=== PATIENT | female | born 1980 | race Caucasian/White ===

== ENCOUNTER 2017-03-20 11:48 | Emergency (ER) | payer MEDICAID ==
[2017-03-20 12:31] LABS: BASOPHILS 0.1 % (0-2); EOSINOPHILS 0.7 % (0-7); HEMATOCRIT 36.9 % (36.0-48.0); HEMOGLOBIN 12.4 g/dL (12-16); IMMATURE GRANULOCYTES 0.1 % (0-5); LYMPHOCYTES 11.9 % (15-50); MCH 30.5 pg (26.0-34.0); MCHC 33.6 g/dL (31.0-37.0); MCV 90.9 fL (80.0-100.0); MEAN PLATELET VOLUME 9.4 fL (7.4-10.4); MONOCYTES 10.2 % (2-11); PLATELET COUNT 241 10x3/uL (130-400); RBC 4.06 10x6/uL (4.00-5.40); RDW 12.7 % (11.5-14.5); WBC 8.2 10x3/uL (4.8-10.8)
[2017-03-20 12:43] LABS: HCG SERUM NEGATIVE (NEGATIVE)
[2017-03-20 12:49] LABS: ALBUMIN 3.5 g/dL (3.4-5.0); ALKALINE PHOSPHATASE 89 U/L (46-116); ALT (SGPT) 60 U/L (10-68); BILIRUBIN - TOTAL 0.87 mg/dL (0.2-1.3); CALC OSMOLALITY 276 mosm/kg (275-300); CALCIUM 9.6 mg/dL (8.5-10.1); CARBON DIOXIDE 27.3 mmol/L (21.0-32.0); CHLORIDE - SERUM 98 mmol/L (98-107); CREATININE - SERUM 0.9 mg/dL (0.6-1.3); GLUCOSE 110 mg/dL (74-106); PROTEIN - SERUM 8.3 g/dL (6.4-8.2); SODIUM 138 mmol/L (136-145); UREA NITROGEN 12 mg/dL (7-18); eGFR NON AFRICAN AMERICAN 75 mL/min (90-120)
[2017-03-20 13:42] LABS: APPEARANCE CLEAR (CLEAR); COLOR DK YELLOW (YELLOW); GLUCOSE NEGATIVE (NEGATIVE); KETONE SMALL mg/dL (NEGATIVE); LEUKOCYTE ESTERASE TRACE (NEGATIVE); NITRITE NEGATIVE (NEGATIVE); PROTEIN 1+ mg/dL (NEGATIVE); SPECIFIC GRAVITY 1.015 (1.005-1.020)
[2017-03-20 13:43] LABS: BACTERIA MANY /hpf (NONE SEEN); BILIRUBIN 1+ (NEGATIVE); EPITHELIAL CELLS 0-5 /hpf (0-5); RED CELLS - URINE OCC /hpf (0-5); UROBILINOGEN NORMAL (NORMAL)
[2017-03-20 14:14] LABS: MAGNESIUM - SERUM 2.1 mg/dL (1.8-2.4)
== END 2017-03-20 15:50 | disposition home or self-care (01) ==
LOC: D.ER 11:48
PROVIDERS: Emergency Medicine
DX: R10.9 Unspecified abdominal pain (principal); R11.10 Vomiting, unspecified; R19.7 Diarrhea, unspecified; E87.6 Hypokalemia; N39.0 Urinary tract infection, site not specified; F41.9 Anxiety disorder, unspecified; F31.9 Bipolar disorder, unspecified; F60.3 Borderline personality disorder; F17.200 Nicotine dependence, unspecified, uncomplicated

== ENCOUNTER 2017-05-19 17:55 | Emergency (ER) | payer MEDICAID | END 2017-05-19 21:38 | disposition home or self-care (01) | LOC: D.ER 17:55 | DX: R07.89 Other chest pain (principal); F17.200 Nicotine dependence, unspecified, uncomplicated; F31.89 Other bipolar disorder; E87.6 Hypokalemia ==

== ENCOUNTER 2017-06-01 11:38 | Emergency (ER) | payer MEDICAID | END 2017-06-01 13:13 | disposition home or self-care (01) | LOC: D.ER 11:38 | DX: S59.901A Unspecified injury of right elbow, initial encounter (principal); W10.9XXA Fall (on) (from) unspecified stairs and steps, initial encounter; Y93.89 Activity, other specified; Y92.89 Other specified places as the place of occurrence of the external cause ==

== ENCOUNTER 2017-08-25 09:47 | Emergency (ER) | payer MEDICAID ==
[2017-08-25 10:33] LABS: APPEARANCE CLEAR (CLEAR); BACTERIA FEW /hpf (NONE SEEN); BILIRUBIN NEGATIVE (NEGATIVE); COLOR YELLOW (YELLOW); EPITHELIAL CELLS 0-5 /hpf (0-5); GLUCOSE NEGATIVE (NEGATIVE); KETONE NEGATIVE (NEGATIVE); MUCUS <1+ /lpf (NONE SEEN); NITRITE NEGATIVE (NEGATIVE); PROTEIN NEGATIVE (NEGATIVE); UROBILINOGEN NORMAL (NORMAL); WHITE CELLS - URINE 0-5 /hpf (0-5); YEAST OCC /hpf (NONE SEEN)
[2017-08-25 10:52] LABS: BASOPHILS 0.1 % (0-2); EOSINOPHILS 1.1 % (0-7); HEMATOCRIT 38.2 % (36.0-48.0); HEMOGLOBIN 13.1 g/dL (12-16); IMMATURE GRANULOCYTES 0.1 % (0-5); LYMPHOCYTES 19.1 % (15-50); MCH 30.2 pg (26.0-34.0); MCHC 34.3 g/dL (31.0-37.0); MEAN PLATELET VOLUME 9.2 fL (7.4-10.4); MONOCYTES 2.7 % (2-11); NEUTROPHILS 76.9 % (40-80); RBC 4.34 10x6/uL (4.00-5.40); RDW 12.7 % (11.5-14.5); WBC 7.4 10x3/uL (4.8-10.8)
[2017-08-25 10:53] LABS: PLATELET COUNT 177 10x3/uL (130-400)
[2017-08-25 11:20] LABS: ALBUMIN 3.8 g/dL (3.4-5.0); ALKALINE PHOSPHATASE 72 U/L (46-116); ALT (SGPT) 33 U/L (10-68); BILIRUBIN - TOTAL 0.23 mg/dL (0.2-1.3); CALC OSMOLALITY 274 mosm/kg (275-300); CALCIUM 9.3 mg/dL (8.5-10.1); CARBON DIOXIDE 29.8 mmol/L (21.0-32.0); CHLORIDE - SERUM 104 mmol/L (98-107); CREATININE - SERUM 0.9 mg/dL (0.6-1.3); GLUCOSE 107 mg/dL (74-106); POTASSIUM - SERUM 4.3 mmol/L (3.5-5.1); PROTEIN - SERUM 7.3 g/dL (6.4-8.2); SODIUM 138 mmol/L (136-145); UREA NITROGEN 9 mg/dL (7-18); eGFR NON AFRICAN AMERICAN 75 mL/min (90-120)
== END 2017-08-25 12:27 | disposition home or self-care (01) ==
LOC: D.ER 09:47
PROVIDERS: Emergency Medicine
DX: R10.9 Unspecified abdominal pain (principal)

== ENCOUNTER 2017-08-27 12:17 | Emergency (ER) | payer MEDICAID | END 2017-08-27 13:17 | disposition home or self-care (01) | LOC: D.ER 12:17 | DX: R10.9 Unspecified abdominal pain (principal); K46.9 Unspecified abdominal hernia without obstruction or gangrene; F17.200 Nicotine dependence, unspecified, uncomplicated ==

== ENCOUNTER 2017-10-07 14:10 | Emergency (ER) | payer MEDICAID ==
[2017-10-07 14:38] LABS: APPEARANCE HAZY (CLEAR); BILIRUBIN NEGATIVE (NEGATIVE); COLOR YELLOW (YELLOW); GLUCOSE NEGATIVE (NEGATIVE); KETONE NEGATIVE (NEGATIVE); NITRITE NEGATIVE (NEGATIVE); PROTEIN NEGATIVE (NEGATIVE); UROBILINOGEN NORMAL (NORMAL)
[2017-10-07 14:39] LABS: EPITHELIAL CELLS 0-5 /hpf (0-5)
[2017-10-07 14:40] LABS: AMORPHOUS SEDIMENT <1+ /lpf (NONE SEEN); BACTERIA FEW /hpf (NONE SEEN)
== END 2017-10-07 15:31 | disposition home or self-care (01) ==
LOC: D.ER 14:10
PROVIDERS: Emergency Medicine
DX: R82.71 Bacteriuria (principal)

== ENCOUNTER 2017-10-25 22:26 | Emergency (ER) | payer MEDICAID ==
[2017-10-26 00:17] LABS: HCG URINE NEGATIVE (NEGATIVE)
[2017-10-26 00:28] LABS: UDS - AMPHET NEGATIVE QUAL (NEGATIVE); UDS - BARB NEGATIVE QUAL (NEGATIVE); UDS - BENZO NEGATIVE QUAL (NEGATIVE); UDS - COCAINE NEGATIVE QUAL (NEGATIVE); UDS - OPIATE NEGATIVE QUAL (NEGATIVE); UDS - PCP NEGATIVE QUAL (NEGATIVE); UDS - THC NEGATIVE QUAL (NEGATIVE)
== END 2017-10-26 01:24 | disposition home or self-care (01) ==
LOC: D.ER 22:26
PROVIDERS: Family Medicine
DX: S16.1XXA Strain of muscle, fascia and tendon at neck level, initial encounter (principal); W17.89XA Other fall from one level to another, initial encounter; Y93.89 Activity, other specified; Y92.028 Other place in mobile home as the place of occurrence of the external cause; S00.93XA Contusion of unspecified part of head, initial encounter; S06.0X1A Concussion with loss of consciousness of 30 minutes or less, initial encounter

== ENCOUNTER → 2017-10-31 14:34 | Outpatient (CLI) | payer MEDICAID | END | disposition home or self-care (01) | LOC: D.MRI 10-30 15:30 | DX: M25.532 Pain in left wrist (principal) ==

== ENCOUNTER 2017-11-18 15:26 | Emergency (ER) | payer MEDICAID | END 2017-11-18 17:45 | disposition home or self-care (01) | LOC: D.ER 15:26 | DX: S61.412A Laceration without foreign body of left hand, initial encounter (principal); W45.8XXA Other foreign body or object entering through skin, initial encounter; Y93.89 Activity, other specified; Y92.019 Unspecified place in single-family (private) house as the place of occurrence of the external cause ==

== ENCOUNTER 2017-11-26 19:36 | Emergency (ER) | payer MEDICAID | END 2017-11-26 21:44 | disposition home or self-care (01) | LOC: D.ER 19:36 | DX: L02.215 Cutaneous abscess of perineum (principal) ==

== ENCOUNTER 2017-12-20 10:50 | Emergency (ER) | payer MEDICAID | END 2017-12-20 13:16 | disposition home or self-care (01) | LOC: D.ER 10:50 | DX: S16.1XXA Strain of muscle, fascia and tendon at neck level, initial encounter (principal); V49.9XXA Car occupant (driver) (passenger) injured in unspecified traffic accident, initial encounter; Y93.89 Activity, other specified; Y92.410 Unspecified street and highway as the place of occurrence of the external cause ==

== ENCOUNTER 2018-04-12 08:31 | Emergency (ER) | payer MEDICAID ==
[2018-04-12 09:06] LABS: BASOPHILS 0.2 % (0-2); EOSINOPHILS 1.2 % (0-7); HEMATOCRIT 41.1 % (36.0-48.0); HEMOGLOBIN 14.1 g/dL (12-16); LYMPHOCYTES 27.1 % (15-50); MCH 30.5 pg (26.0-34.0); MCHC 34.3 g/dL (31.0-37.0); MEAN PLATELET VOLUME 9.4 fL (7.4-10.4); MONOCYTES 5.2 % (2-11); NEUTROPHILS 66.3 % (40-80); PLATELET COUNT 191 10x3/uL (130-400); RBC 4.62 10x6/uL (4.00-5.40); RDW 12.9 % (11.5-14.5); WBC 5.7 10x3/uL (4.8-10.8)
[2018-04-12 09:22] LABS: ALBUMIN 3.9 g/dL (3.4-5.0); ALKALINE PHOSPHATASE 80 U/L (46-116); ALT (SGPT) 19 U/L (10-68); BILIRUBIN - TOTAL 0.61 mg/dL (0.2-1.3); CALC OSMOLALITY 281 mosm/kg (275-300); CALCIUM 9.3 mg/dL (8.5-10.1); CARBON DIOXIDE 30.1 mmol/L (21.0-32.0); CHLORIDE - SERUM 104 mmol/L (98-107); GLUCOSE 106 mg/dL (74-106); POTASSIUM - SERUM 4.1 mmol/L (3.5-5.1); PROTEIN - SERUM 7.7 g/dL (6.4-8.2); SODIUM 141 mmol/L (136-145); UREA NITROGEN 16 mg/dL (7-18); eGFR NON AFRICAN AMERICAN 66 mL/min (90-120)
[2018-04-12 09:27] LABS: CREATINE KINASE 55 UL (21-215)
[2018-04-12 09:34] LABS: TROPONIN-I < 0.017 ng/mL (0.000-0.060)
== END 2018-04-12 10:40 | disposition home or self-care (01) ==
LOC: D.ER 08:31
PROVIDERS: Emergency Medicine
DX: R00.2 Palpitations (principal); F17.200 Nicotine dependence, unspecified, uncomplicated

== ENCOUNTER 2018-09-16 21:17 | Emergency (ER) | payer MEDICAID ==
[~2018-09-16] VITALS: Ht 149.9 cm; Wt 63.6 kg
[2018-09-16 21:30] VITALS: Ht 149.9 cm; Wt 63.6 kg
[2018-09-16] MEDS ORDERED: KLONOPIN0.5 MG (21:32)
[2018-09-16] MEDS ORDERED: TORADOL10 MG PO (22:50)
[2018-09-16 23:04] VITALS: BP 115/74
== END 2018-09-16 23:05 | disposition home or self-care (01) ==
LOC: D.ER 21:17
DX: S71.112A Laceration without foreign body, left thigh, initial encounter (principal); X78.9XXA Intentional self-harm by unspecified sharp object, initial encounter; Y93.89 Activity, other specified; Y92.019 Unspecified place in single-family (private) house as the place of occurrence of the external cause; F17.200 Nicotine dependence, unspecified, uncomplicated

== ENCOUNTER 2018-09-18 22:13 | Emergency (ER) | payer MEDICAID ==
[~2018-09-18] VITALS: Ht 149.9 cm; Wt 68.2 kg
[~2018-09-18 22:13] MED LIST: KLONOPIN0.5 MG; TORADOL10 MG PO
[2018-09-18 22:17] VITALS: Ht 149.9 cm; Wt 68.2 kg
[2018-09-19] MEDS ORDERED: EC-NAPROSYN500 MG PO (00:13)
[2018-09-19] MEDS ORDERED: BACTRIM 400-801 TAB PO (00:13)
[2018-09-19] MEDS ORDERED: POLYSPORIN OINT15 G1 TOPICAL (00:13)
[2018-09-19 00:29] VITALS: BP 116/74
== END 2018-09-19 00:29 | disposition home or self-care (01) ==
LOC: D.ER 22:13
DX: S71.112D Laceration without foreign body, left thigh, subsequent encounter (principal); X99.1XXD Assault by knife, subsequent encounter; M79.652 Pain in left thigh

== ENCOUNTER 2018-10-07 13:14 | Emergency (ER) | payer MEDICAID ==
[~2018-10-07] VITALS: Ht 149.9 cm; Wt 68.2 kg
[~2018-10-07 13:14] MED LIST changes: +BACTRIM 400-801 TAB PO; +EC-NAPROSYN500 MG PO; +POLYSPORIN OINT15 G1 TOPICAL
[2018-10-07 13:18] VITALS: Ht 149.9 cm; Wt 68.2 kg
[2018-10-07 13:45] LABS: APPEARANCE CLEAR (CLEAR); COLOR DK YELLOW (YELLOW)
[2018-10-07 13:46] LABS: BILIRUBIN NEGATIVE (NEGATIVE); GLUCOSE NEGATIVE (NEGATIVE); KETONE NEGATIVE (NEGATIVE); NITRITE NEGATIVE (NEGATIVE); PROTEIN 2+ mg/dL (NEGATIVE); SPECIFIC GRAVITY 1.025 (1.005-1.020); UROBILINOGEN NORMAL (NORMAL)
[2018-10-07 13:48] LABS: BACTERIA MODERATE /hpf (NONE SEEN); EPITHELIAL CELLS 0-5 /hpf (0-5); MUCUS <1+ /lpf (NONE SEEN); RED CELLS - URINE 0-5 /hpf (0-5); WHITE CELLS - URINE 0-5 /hpf (0-5)
[2018-10-07 13:56] LABS: BASOPHILS 0.3 % (0-2); EOSINOPHILS 0.8 % (0-7); HEMATOCRIT 47.2 % (36.0-48.0); HEMOGLOBIN 16.6 g/dL (12-16); IMMATURE GRANULOCYTES 0.1 % (0-5); LYMPHOCYTES 19.7 % (15-50); MCHC 35.2 g/dL (31.0-37.0); MCV 88.1 fL (80.0-100.0); MEAN PLATELET VOLUME 9.2 fL (7.4-10.4); MONOCYTES 5.5 % (2-11); NEUTROPHILS 73.6 % (40-80); PLATELET COUNT 218 10x3/uL (130-400); RBC 5.36 10x6/uL (4.00-5.40); RDW 12.6 % (11.5-14.5); WBC 7.9 10x3/uL (4.8-10.8)
[2018-10-07 14:08] LABS: ALBUMIN 4.2 g/dL (3.4-5.0); ALKALINE PHOSPHATASE 104 U/L (46-116); ALT (SGPT) 45 U/L (10-68); CALC OSMOLALITY 276 mosm/kg (275-300); CALCIUM 9.8 mg/dL (8.5-10.1); CARBON DIOXIDE 27.2 mmol/L (21.0-32.0); CHLORIDE - SERUM 98 mmol/L (98-107); CREATININE - SERUM 0.9 mg/dL (0.6-1.3); GLUCOSE 104 mg/dL (74-106); POTASSIUM - SERUM 3.7 mmol/L (3.5-5.1); PROTEIN - SERUM 8.5 g/dL (6.4-8.2); SODIUM 138 mmol/L (136-145); UREA NITROGEN 14 mg/dL (7-18); eGFR NON AFRICAN AMERICAN 75 mL/min (90-120)
[2018-10-07] MEDS ORDERED: PHENERGAN25 M1 PO (15:22)
[2018-10-07] MEDS ORDERED: KEFLEX500 MG PO (15:22)
[2018-10-07 15:42] VITALS: BP 125/81
== END 2018-10-07 15:42 | disposition home or self-care (01) ==
LOC: D.ER 13:14
PROVIDERS: Family Medicine
DX: R11.2 Nausea with vomiting, unspecified (principal); E86.0 Dehydration

== ENCOUNTER 2018-10-12 15:18 | Emergency (ER) | payer MEDICAID ==
[~2018-10-12] VITALS: Ht 149.9 cm; Wt 61.4 kg
[~2018-10-12 15:18] MED LIST changes: +KEFLEX500 MG PO; +PHENERGAN25 M1 PO
[2018-10-12 15:32] VITALS: Ht 149.9 cm; Wt 61.4 kg
[2018-10-12 19:31] VITALS: BP 130/77
== END 2018-10-12 19:33 | disposition home or self-care (01) ==
LOC: D.ER 15:18
DX: R53.1 Weakness (principal); F17.200 Nicotine dependence, unspecified, uncomplicated

== ENCOUNTER 2018-12-11 16:02 | Emergency (ER) | payer MEDICAID ==
[~2018-12-11] VITALS: Ht 149.9 cm; Wt 70.0 kg
[2018-12-11 16:13] VITALS: BP 120/78; Ht 149.9 cm; Wt 70.0 kg
[2018-12-11] MEDS ORDERED: TRAZODONE HCL150 MG PO (16:16)
[2018-12-11 17:24] LABS: BASOPHILS 0.2 % (0-2); EOSINOPHILS 2.2 % (0-7); HEMATOCRIT 39.7 % (36.0-48.0); HEMOGLOBIN 13.5 g/dL (12-16); IMMATURE GRANULOCYTES 0.2 % (0-5); LYMPHOCYTES 25.2 % (15-50); MCH 31.1 pg (26.0-34.0); MCV 91.5 fL (80.0-100.0); MEAN PLATELET VOLUME 9.2 fL (7.4-10.4); MONOCYTES 4.9 % (2-11); NEUTROPHILS 67.3 % (40-80); PLATELET COUNT 247 10x3/uL (130-400); RBC 4.34 10x6/uL (4.00-5.40); RDW 13.5 % (11.5-14.5); WBC 8.6 10x3/uL (4.8-10.8)
[2018-12-11 17:39] LABS: ALBUMIN 3.4 g/dL (3.4-5.0); ALKALINE PHOSPHATASE 92 U/L (46-116); ALT (SGPT) 23 U/L (10-68); BILIRUBIN - TOTAL 0.24 mg/dL (0.2-1.3); CALC OSMOLALITY 279 mosm/kg (275-300); CALCIUM 8.4 mg/dL (8.5-10.1); CARBON DIOXIDE 27.3 mmol/L (21.0-32.0); CHLORIDE - SERUM 105 mmol/L (98-107); CREATININE - SERUM 0.8 mg/dL (0.6-1.3); GLUCOSE 98 mg/dL (74-106); POTASSIUM - SERUM 3.5 mmol/L (3.5-5.1); PROTEIN - SERUM 7.6 g/dL (6.4-8.2); SODIUM 141 mmol/L (136-145); UREA NITROGEN 11 mg/dL (7-18); eGFR NON AFRICAN AMERICAN 86 mL/min (90-120)
== END 2018-12-11 19:20 | disposition left against medical advice (07) ==
LOC: D.ER 16:02
PROVIDERS: Emergency Medicine
DX: R05 Cough (principal); R09.89 Other specified symptoms and signs involving the circulatory and respiratory systems

== ENCOUNTER 2018-12-31 15:13 | Emergency (ER) | payer MEDICAID ==
[2018-12-11 16:13] VITALS: BMI 31.1
[~2018-12-31 15:13] MED LIST changes: +TRAZODONE HCL150 MG PO
== END 2018-12-31 15:29 | disposition left against medical advice (07) ==
LOC: D.ER 15:13
DX: R06.00 Dyspnea, unspecified (principal); R05 Cough

== ENCOUNTER → 2019-03-04 16:15 | Outpatient (CLI) | payer MEDICAID | END | disposition home or self-care (01) | LOC: D.LAB 16:15 | DX: M25.511 Pain in right shoulder (principal) ==

== ENCOUNTER 2019-05-01 19:43 | Emergency (ER) | payer MEDICAID ==
[~2019-05-01] VITALS: Ht 149.9 cm; Wt 72.7 kg
[2019-05-01 19:45] VITALS: Ht 149.9 cm; Wt 72.7 kg
[2019-05-01] MEDS ORDERED: KLONOPIN1 MG PO (19:58)
[2019-05-01] MEDS ORDERED: PERCOCET 7.5/321 TAB PO (19:59)
[2019-05-01 20:04] LABS: BASOPHILS 0.3 % (0-2); EOSINOPHILS 3.1 % (0-7); HEMATOCRIT 38.6 % (36.0-48.0); HEMOGLOBIN 13.3 g/dL (12-16); IMMATURE GRANULOCYTES 0.3 % (0-5); LYMPHOCYTES 28.5 % (15-50); MCH 30.7 pg (26.0-34.0); MCHC 34.5 g/dL (31.0-37.0); MCV 89.1 fL (80.0-100.0); MEAN PLATELET VOLUME 9.2 fL (7.4-10.4); MONOCYTES 5.9 % (2-11); NEUTROPHILS 61.9 % (40-80); PLATELET COUNT 233 10x3/uL (130-400); RBC 4.33 10x6/uL (4.00-5.40); RDW 13.8 % (11.5-14.5); WBC 7.7 10x3/uL (4.8-10.8)
[2019-05-01 20:33] LABS: ALBUMIN 3.9 g/dL (3.4-5.0); ALKALINE PHOSPHATASE 114 U/L (46-116); ALT (SGPT) 103 U/L (10-68); BILIRUBIN - TOTAL 0.42 mg/dL (0.2-1.3); CALC OSMOLALITY 279 mosm/kg (275-300); CALCIUM 9.4 mg/dL (8.5-10.1); CARBON DIOXIDE 27.1 mmol/L (21.0-32.0); CHLORIDE - SERUM 103 mmol/L (98-107); CREATININE - SERUM 0.7 mg/dL (0.6-1.3); GLUCOSE 101 mg/dL (74-106); PROTEIN - SERUM 7.7 g/dL (6.4-8.2); SODIUM 140 mmol/L (136-145); UREA NITROGEN 15 mg/dL (7-18); eGFR NON AFRICAN AMERICAN > 90 mL/min (90-120)
[2019-05-01 20:35] LABS: APPEARANCE CLEAR (CLEAR); COLOR YELLOW (YELLOW); GLUCOSE NEGATIVE (NEGATIVE); KETONE NEGATIVE (NEGATIVE); NITRITE NEGATIVE (NEGATIVE); PROTEIN NEGATIVE (NEGATIVE); UROBILINOGEN NORMAL (NORMAL)
[2019-05-01 20:36] LABS: BILIRUBIN NEGATIVE (NEGATIVE); EPITHELIAL CELLS 0-5 /hpf (0-5); RED CELLS - URINE 0-5 /hpf (0-5); WHITE CELLS - URINE 0-5 /hpf (0-5)
[2019-05-01 20:37] LABS: AMYLASE - SERUM 46 U/L (25-115); LIPASE 184 U/L (73-393); TROPONIN-I < 0.017 ng/mL (0.000-0.060)
[2019-05-01 20:37] LABS: BACTERIA MANY /hpf (NONE SEEN)
[2019-05-01] MEDS ORDERED: PHENAZOPYRIDIN200 MG PO (21:57)
[2019-05-01] MEDS ORDERED: KEFLEX500 MG PO (21:57)
[2019-05-01] MEDS ORDERED: MACROBID100 MG PO (21:57)
[2019-05-01 23:15] VITALS: BP 131/86
== END 2019-05-01 23:15 | disposition home or self-care (01) ==
LOC: D.ER 19:43
PROVIDERS: Family Medicine
DX: N39.0 Urinary tract infection, site not specified (principal); R10.31 Right lower quadrant pain

== ENCOUNTER 2020-02-01 19:51 | Emergency (ER) | payer MEDICAID ==
[~2020-02-01] VITALS: Ht 149.9 cm; Wt 72.7 kg
[~2020-02-01 19:51] MED LIST changes: +KLONOPIN1 MG PO; +MACROBID100 MG PO; +PERCOCET 7.5/321 TAB PO; +PHENAZOPYRIDIN200 MG PO
[2020-02-01 20:06] VITALS: Ht 149.9 cm; Wt 72.7 kg
[2020-02-01] MEDS ORDERED: LATUDA40 MG PO (20:08)
[2020-02-01 20:21] LABS: BASOPHILS 0.2 % (0-2); HEMATOCRIT 44.6 % (36.0-48.0); IMMATURE GRANULOCYTES 0.2 % (0-5); LYMPHOCYTES 27.9 % (15-50); MCH 30.4 pg (26.0-34.0); MCHC 33.6 g/dL (31.0-37.0); MCV 90.5 fL (80.0-100.0); MEAN PLATELET VOLUME 9.2 fL (7.4-10.4); MONOCYTES 5.6 % (2-11); NEUTROPHILS 64.1 % (40-80); RBC 4.93 10x6/uL (4.00-5.40); RDW 13.6 % (11.5-14.5); WBC 12.5 10x3/uL (4.8-10.8)
[2020-02-01 20:22] LABS: PLATELET COUNT 298 10x3/uL (130-400)
[2020-02-01 20:33] LABS: ANION GAP 14.4 mmol/L (8-16); CALCIUM 9.6 mg/dL (8.5-10.1); CARBON DIOXIDE 25.8 mmol/L (21.0-32.0); CREATININE - SERUM 0.9 mg/dL (0.6-1.3); POTASSIUM - SERUM 3.2 mmol/L (3.5-5.1)
[2020-02-01 20:41] LABS: ALBUMIN 4.3 g/dL (3.4-5.0); BILIRUBIN - TOTAL 0.58 mg/dL (0.2-1.3); PROTEIN - SERUM 8.4 g/dL (6.4-8.2)
[2020-02-01 20:49] LABS: NITRITE NEGATIVE (NEGATIVE)
[2020-02-01 20:50] LABS: BILIRUBIN NEGATIVE (NEGATIVE); GLUCOSE NEGATIVE (NEGATIVE); KETONE NEGATIVE (NEGATIVE); UROBILINOGEN NORMAL (NORMAL)
[2020-02-01 20:52] LABS: BACTERIA MODERATE /hpf (NEGATIVE); RED CELLS - URINE 0-5 /hpf (0-5)
[2020-02-01] MEDS ORDERED: KEFLEX500 MG PO (21:04)
[2020-02-01] MEDS ORDERED: MACROBID100 MG PO (21:04)
[2020-02-01 21:33] VITALS: BP 110/65
== END 2020-02-01 21:33 | disposition home or self-care (01) ==
LOC: D.ER 19:51
PROVIDERS: Emergency Medicine
DX: N39.0 Urinary tract infection, site not specified (principal); R10.9 Unspecified abdominal pain; E87.6 Hypokalemia; D72.829 Elevated white blood cell count, unspecified

== ENCOUNTER 2020-02-14 18:04 | Emergency (ER) | payer MEDICAID ==
[~2020-02-14] VITALS: Ht 149.9 cm; Wt 77.3 kg
[~2020-02-14 18:04] MED LIST changes: +LATUDA40 MG PO
[2020-02-14 18:26] VITALS: BP 135/89; Ht 149.9 cm; Wt 77.3 kg
[2020-02-14] MEDS ORDERED: TESSALON PERLE100 MG PO (20:16)
[2020-02-14] MEDS ORDERED: STERAPRED 5MG 65 M1 PO (20:18)
[2020-02-14] MEDS ORDERED: ALBUTEROL SULF8.5 GM INH (20:18)
== END 2020-02-14 20:31 | disposition home or self-care (01) ==
LOC: D.ER 18:04
DX: J40 Bronchitis, not specified as acute or chronic (principal)

== ENCOUNTER 2020-03-30 10:47 | Emergency (ER) | payer MEDICAID ==
[~2020-03-30] VITALS: Ht 149.9 cm; Wt 81.8 kg
[~2020-03-30 10:47] MED LIST changes: +ALBUTEROL SULF8.5 GM INH; +STERAPRED 5MG 65 M1 PO; +TESSALON PERLE100 MG PO
[2020-03-30 11:07] VITALS: Ht 149.9 cm; Wt 81.8 kg
[2020-03-30 11:48] LABS: BILIRUBIN NEGATIVE (NEGATIVE); GLUCOSE NEGATIVE (NEGATIVE); HCG URINE NEGATIVE (NEGATIVE); KETONE NEGATIVE (NEGATIVE); NITRITE NEGATIVE (NEGATIVE); UROBILINOGEN NORMAL (NORMAL)
[2020-03-30 11:49] LABS: BACTERIA NONE SEEN /hpf (NEGATIVE); EPITHELIAL CELLS RARE /hpf (0-5); RED CELLS - URINE 0-5 /hpf (0-5); WHITE CELLS - URINE RARE /hpf (NEGATIVE)
[2020-03-30 11:56] LABS: BASOPHILS 0.2 % (0-2); EOSINOPHILS 1.8 % (0-7); HEMATOCRIT 42.3 % (36.0-48.0); HEMOGLOBIN 13.5 g/dL (12-16); IMMATURE GRANULOCYTES 0.3 % (0-5); LYMPHOCYTES 10.8 % (15-50); MCH 29.7 pg (26.0-34.0); MCHC 31.9 g/dL (31.0-37.0); MCV 93.2 fL (80.0-100.0); MEAN PLATELET VOLUME 8.6 fL (7.4-10.4); MONOCYTES 3.8 % (2-11); NEUTROPHILS 83.1 % (40-80); PLATELET COUNT 274 10x3/uL (130-400); RBC 4.54 10x6/uL (4.00-5.40); RDW 14.6 % (11.5-14.5); WBC 11.4 10x3/uL (4.8-10.8)
[2020-03-30 12:07] LABS: CALC OSMOLALITY 278 mosm/kg (275-300); CALCIUM 9.5 mg/dL (8.5-10.1); CARBON DIOXIDE 28.2 mmol/L (21.0-32.0); CHLORIDE - SERUM 101 mmol/L (98-107); CREATININE - SERUM 0.8 mg/dL (0.6-1.3); GLUCOSE 112 mg/dL (74-106); POTASSIUM - SERUM 4.8 mmol/L (3.5-5.1); SODIUM 138 mmol/L (136-145); UREA NITROGEN 17 mg/dL (7-18); eGFR NON AFRICAN AMERICAN 85 mL/min (90-120)
[2020-03-30 12:12] LABS: ALBUMIN 4.3 g/dL (3.4-5.0); ALKALINE PHOSPHATASE 100 U/L (30-120); ALT (SGPT) 121 U/L (10-68); AMYLASE - SERUM 58 U/L (25-115); BILIRUBIN - TOTAL 0.56 mg/dL (0.2-1.3); LIPASE 168 U/L (73-393); PROTEIN - SERUM 8.2 g/dL (6.4-8.2)
[2020-03-30] MEDS ORDERED: MACROBID100 MG PO (13:49)
[2020-03-30] MEDS ORDERED: PHENERGAN25 M1 PO (13:49)
[2020-03-30 14:19] VITALS: BP 137/89
== END 2020-03-30 14:25 | disposition home or self-care (01) ==
LOC: D.ER 10:47
PROVIDERS: Family Medicine
DX: N23 Unspecified renal colic (principal); R31.9 Hematuria, unspecified; Z87.442 Personal history of urinary calculi; R11.2 Nausea with vomiting, unspecified; R10.9 Unspecified abdominal pain

== ENCOUNTER 2020-07-17 20:24 | Emergency (ER) | payer MEDICAID ==
[~2020-07-17] VITALS: Ht 149.9 cm; Wt 81.6 kg
[2020-07-17 20:40] VITALS: Ht 149.9 cm; Wt 81.6 kg
[2020-07-17 20:56] LABS: BILIRUBIN NEGATIVE (NEGATIVE); GLUCOSE NEGATIVE (NEGATIVE); KETONE NEGATIVE (NEGATIVE); NITRITE NEGATIVE (NEGATIVE); UROBILINOGEN NORMAL (NORMAL)
[2020-07-17 20:59] LABS: BACTERIA FEW /hpf (NEGATIVE); RED CELLS - URINE 0-5 /hpf (0-5); WHITE CELLS - URINE 0-5 /hpf (NEGATIVE)
[2020-07-17 21:02] LABS: BASOPHILS 0.2 % (0-2); EOSINOPHILS 1.8 % (0-7); HEMATOCRIT 41.8 % (36.0-48.0); HEMOGLOBIN 13.5 g/dL (12-16); IMMATURE GRANULOCYTES 0.3 % (0-5); LYMPHOCYTES 24.2 % (15-50); MCH 29.3 pg (26.0-34.0); MCHC 32.3 g/dL (31.0-37.0); MCV 90.9 fL (80.0-100.0); MEAN PLATELET VOLUME 8.6 fL (7.4-10.4); NEUTROPHILS 67.5 % (40-80); PLATELET COUNT 247 10x3/uL (130-400); RDW 13.4 % (11.5-14.5); WBC 10.6 10x3/uL (4.8-10.8)
[2020-07-17 21:15] LABS: HCG SERUM NEGATIVE (NEGATIVE)
[2020-07-17 21:16] LABS: ANION GAP 12.5 mmol/L (8-16); CALCIUM 9.4 mg/dL (8.5-10.1); CARBON DIOXIDE 28.2 mmol/L (21.0-32.0); CREATININE - SERUM 0.9 mg/dL (0.6-1.3); POTASSIUM - SERUM 3.7 mmol/L (3.5-5.1)
[2020-07-17 21:22] LABS: ALBUMIN 3.9 g/dL (3.4-5.0); BILIRUBIN - TOTAL 0.31 mg/dL (0.2-1.3); PROTEIN - SERUM 7.8 g/dL (6.4-8.2)
[2020-07-17] MEDS ORDERED: NAPROSYN500 MG PO (22:14)
[2020-07-17] MEDS ORDERED: CYCLOBENZAPRINE10 MG PO (22:14)
[2020-07-17 22:21] VITALS: BP 137/90
[2020-07-18] MEDS ORDERED: GABAPENTIN300 MG (20:49)
[2020-07-18] MEDS ORDERED: STERAPRED DS 1010 MG PO (22:27)
== END 2020-07-17 22:21 | disposition home or self-care (01) ==
LOC: D.ER 20:24
PROVIDERS: Family Medicine
DX: S39.012A Strain of muscle, fascia and tendon of lower back, initial encounter (principal); X58.XXXA Exposure to other specified factors, initial encounter

== ENCOUNTER 2020-07-18 20:35 | Emergency (ER) | payer MEDICAID ==
[~2020-07-18] VITALS: Ht 149.9 cm; Wt 81.8 kg
[~2020-07-18 20:35] MED LIST changes: +CYCLOBENZAPRINE10 MG PO; +NAPROSYN500 MG PO
[2020-07-18 20:46] VITALS: Ht 149.9 cm; Wt 81.8 kg
[2020-07-18] MEDS ORDERED: GABAPENTIN300 MG (20:49)
--- NOTE | 2020-07-18 22:01 | NUR ---
PATIENT HERE FOR BACK MARIO, SHE IS NOT SUICIDIAL, SHE HAD THE THOUGHTS YEARS AGO. SHE HAS NEVER ATTEMPTED. 1-800 NUMBER GIVEN.
[2020-07-18] MEDS ORDERED: STERAPRED DS 1010 MG PO (22:27)
[2020-07-18 23:30] VITALS: BP 125/77
== END 2020-07-18 23:30 | disposition home or self-care (01) ==
LOC: D.ER 20:35
DX: M54.5 Low back pain (principal); M54.30 Sciatica, unspecified side

== ENCOUNTER 2020-08-30 03:30 | Inpatient (IN) | payer MEDICAID ==
[2020-08-30] VITALS (9 sets, daily range): BP systolic 106–141; BP diastolic 69–84
[~2020-08-30] VITALS: Ht 149.9 cm; Wt 81.8 kg
[~2020-08-30 03:30] MED LIST changes: +GABAPENTIN300 MG; +STERAPRED DS 1010 MG PO
[2020-08-30] MEDS ORDERED: KLONOPIN1 MG PO (03:41)
--- NOTE | 2020-08-30 03:50 | NUR ---
CALLED POISON CONTROL.STATES SINCE 12 HOURS POST INGESTION NOT LIKELY TO HAVE ANY SIDE EFFECTS UNLESS CONTINUING DROWSINESS
[2020-08-30 04:16] LABS: HEMOGLOBIN 11.2 g/dL (12-16); MCH 29.6 pg (26.0-34.0); MCHC 32.9 g/dL (31.0-37.0); MCV 89.9 fL (80.0-100.0); MEAN PLATELET VOLUME 9.1 fL (7.4-10.4); PLATELET COUNT 229 10x3/uL (130-400); RBC 3.78 10x6/uL (4.00-5.40); RDW 14.6 % (11.5-14.5); WBC 22.7 10x3/uL (4.8-10.8)
[2020-08-30 04:23] LABS: ANION GAP 8.8 mmol/L (8-16); CREATININE - SERUM 1.1 mg/dL (0.6-1.3); POTASSIUM - SERUM 3.8 mmol/L (3.5-5.1)
[2020-08-30 04:29] LABS: ALBUMIN 3.3 g/dL (3.4-5.0); BILIRUBIN - TOTAL 1.22 mg/dL (0.2-1.3); PROTEIN - SERUM 6.9 g/dL (6.4-8.2)
[2020-08-30 04:40] LABS: LYMPHOCYTES 7 % (15-50); MONOCYTES 7 % (2-11); NEUTROPHILS 84 % (40-80); PLATELET ESTIMATE NORMAL
[2020-08-30 04:45] LABS: BILIRUBIN NEGATIVE (NEGATIVE); KETONE NEGATIVE (NEGATIVE); NITRITE NEGATIVE (NEGATIVE); UDS - AMPHET NEGATIVE QUAL (NEGATIVE); UDS - BARB NEGATIVE QUAL (NEGATIVE); UDS - BENZO NEGATIVE QUAL (NEGATIVE); UDS - COCAINE NEGATIVE QUAL (NEGATIVE); UDS - OPIATE NEGATIVE QUAL (NEGATIVE); UDS - PCP NEGATIVE QUAL (NEGATIVE); UDS - THC NEGATIVE QUAL (NEGATIVE); UROBILINOGEN NORMAL mg/dL (< 2)
--- NOTE | 2020-08-30 07:30 | NUR ---
PT PROVIDED WITH BREAKFAST. VOICES NO NEEDS AT THIS TIME.
--- NOTE | 2020-08-30 09:17 | NUR ---
PT RESTING IN POSITION OF COMFORT WITH LAB AT BEDSIDE AT THIS TIME. PT STATES THAT HER FOOT IS HURTING AND REPORTS THAT SHE THINK THE WILIAN BANDAGE IS TO TIGHT. PT'S WILIAN BANDAGE ADJUSTED, ICE PROVIDED FOR THE PT TO HELP WITH COMFORT MEASURES. PT ALSO ASSISTED IN PROPPING HER FOOT UP TO HELP WITH PAIN AND ASSIST THE PT INTO A POSITION OF COMFORT. PT ASSISTED TO BEDSIDE COMMODE.
[2020-08-30 12:49] LABS: CKMB 4.6 U/L (0.0-3.6); CREATINE KINASE 482 UL (21-215)
[2020-08-30 12:51] LABS: TROPONIN-I < 0.017 ng/mL (0.000-0.060)
[2020-08-30 13:33] LABS: ERYTHROCYTE SEDIMENTATION RATE 43 mm/hr (0-20)
--- NOTE | 2020-08-30 13:50 | NUR ---
PT BACK FROM RADIOLOGY AT THIS TIME.
--- NOTE | 2020-08-30 14:45 | NUR ---
PT ASSISTED TO BEDSIDE COMMODE AT THIS TIME.
--- NOTE | 2020-08-30 14:50 | NUR ---
PT'S BLOOD SUGAR CHECKED D/T NPO STATUS SINCE 0000, PT UPDATED ON POC AND INFORMED THAT IF SHE IS NOT ABLE TO GET HER TESTING DONE TODAY THEN WE WILL GET HER A TRAY AND LET HER KNOW WHEN THEY WILL DO THE TESTING.
--- NOTE | 2020-08-30 18:00 | NUR ---
PT IS COVID NEGATIVE
[2020-08-30 19:10] LABS: CKMB 4.2 U/L (0.0-3.6); CREATINE KINASE 411 UL (21-215); TROPONIN-I < 0.017 ng/mL (0.000-0.060)
--- NOTE | 2020-08-30 22:00 | NUR ---
PT STATES SHE NEEDS TO USE BED SIDE COMMODE. ASKED PT IF SHE NEEDED HELP TO COMMODE AND PT STATES SHE IS ABLE TO TRANSFER ON HER OWN. RIGHT AFTER LEAVING ROOM HEARD CRASH AND WENT IN TO FIND PT SITTING IN FLOOR. PT STATES SHE WAS TRYING TO TURN AND SIT ON BSC BUT WAS ATTEMPTING TO UNCROSS IV LINE WHEN SHE LOST HER BALANCE AND FELL. C/O RIGHT FOOT PAIN (FOOT THAT WAS ALREADY INJURED.) PT ASSISTED TO BSC AND THEN ASSISTED BACK TO BED. PT INSTRUCTED TO USE CALL LIGHT FOR ANY FURTHER NEEDS AND NOT TO GET OUT OF BED W/O ASSIST. PT VERBALIZED UNDERSTANDING OF INSTRUCTIONS.
[2020-08-31] VITALS (7 sets, daily range): BP systolic 114–134; BP diastolic 63–86; Ht 149.9 cm; Wt 81.8 kg
[2020-08-31 00:12] LABS: CKMB 2.6 U/L (0.0-3.6); CREATINE KINASE 323 UL (21-215)
[2020-08-31 00:14] LABS: TROPONIN-I < 0.017 ng/mL (0.000-0.060)
[2020-08-31 08:05] LABS: BASOPHILS 0 % (0-2); EOSINOPHILS 0.1 % (0-7); HEMATOCRIT 31.3 % (36.0-48.0); HEMOGLOBIN 9.9 g/dL (12-16); IMMATURE GRANULOCYTES 0.3 % (0-5); LYMPHOCYTES 6.8 % (15-50); MCH 28.7 pg (26.0-34.0); MCHC 31.6 g/dL (31.0-37.0); MCV 90.7 fL (80.0-100.0); MEAN PLATELET VOLUME 9.5 fL (7.4-10.4); MONOCYTES 5.5 % (2-11); NEUTROPHILS 87.3 % (40-80); PLATELET COUNT 252 10x3/uL (130-400); RBC 3.45 10x6/uL (4.00-5.40); RDW 14.9 % (11.5-14.5); WBC 17.6 10x3/uL (4.8-10.8)
[2020-08-31 08:21] LABS: ALBUMIN 2.6 g/dL (3.4-5.0); ALKALINE PHOSPHATASE 83 U/L (30-120); ALT (SGPT) 32 U/L (10-68); BILIRUBIN - TOTAL 0.28 mg/dL (0.2-1.3); CALC OSMOLALITY 278 mosm/kg (275-300); CALCIUM 8.4 mg/dL (8.5-10.1); CHLORIDE - SERUM 107 mmol/L (98-107); GLUCOSE 141 mg/dL (74-106); POTASSIUM - SERUM 3.4 mmol/L (3.5-5.1); PRO BNP 1668 pg/mL (0-125); PROTEIN - SERUM 6.3 g/dL (6.4-8.2); SODIUM 140 mmol/L (136-145); UREA NITROGEN 8 mg/dL (7-18)
[2020-08-31 08:22] LABS: CREATININE - SERUM 0.7 mg/dL (0.6-1.3); eGFR NON AFRICAN AMERICAN > 90 mL/min (90-120)
--- NOTE | 2020-08-31 09:34 | NUR ---
PATIENT RECEIVED IN ED ROOM 4 FROM NURSE VIKTORIYA RN. PATIENT WITH RIGHT FOREARM IV INFUSING WELL. REQUESTS TO WAIT ON BREAKFAST. C/O HEADACHE AND RIGHT FOOT PAIN.
--- NOTE | 2020-08-31 09:35 | NUR ---
PRIOR TO PATIENT GOING TO RADIOLOGY, RIGHT FOREARM SWELLING AND PAINFUL -IV REMOVED WITH CATH INTACT. 22 GAUGE PLACED IN LEFT HAND X 2 ATTEMPTS.
--- NOTE | 2020-08-31 09:36 | NUR ---
RADIOLOGY HERE, PATIENT NEEDS 20 GAUGE. USING ULTRASOUND, 20 GAUGE 1 3/4 INCH CATH PLACED IN RIGHT UPPER ARM. PATIENT TO RADILOLOGY
--- NOTE | 2020-08-31 09:37 | NUR ---
PAIN MED GIVEN ORDERED.
--- NOTE | 2020-08-31 12:54 | NUR ---
PATIENT ADMITTED TO ROOM 2201. ADMISSION COMPLETE. VITALS STABLE. BED LOW. CALL WELCH AND PERSONAL ITEMS IN REACH. WILL CONTINUE TO MONITOR.
--- NOTE | 2020-08-31 13:03 | NUR ---
SPOKE WITH [employer] TO GET WALKER BOOT PER DR VALENCIA ORDER. STATES "GEORGINA WILL WORK ON IT."
--- NOTE | 2020-08-31 13:20 | NUR ---
SPOKE WITH [employer]TINA PLANT ENGINEERING MANAGER TO GET PERMISSION FOR PATIENT'S 13 YEAR OLD DAUGHTER TO COME VISIT AND FOR PATIENT'S SISTER IN LAW TO WALK PATIENT'S DAUGHTER TO ROOM. PATIENT EDUCATION PROVIDED THAT ONLY ONE VISITOR EVERY 24 HOURS. VERBALIZED UNDERSTANDING.
--- NOTE | 2020-08-31 14:55 | NUR ---
ANTONIO PITTMAN PLACED IN PATIENT'S ROOM FOR PT.
--- NOTE | 2020-08-31 15:45 | NUR ---
ASSISTED TO AND FROM BSC. DENIES FURTHER NEEDS. WILL CONTINUE TO MONITOR.
--- NOTE | 2020-08-31 19:47 | NUR ---
RESTING IN BED ALERT AND ORENTED ABLE TO VOICE NEEDS AND WANTS TO STAFF. O2 AT 2 LETTERS VIA N/C IN PLACE. IV TO RIGHT UPPER ARM WITH NS PER ORDERS, NO C/O PAIN AT SITE. NO REDNESS NOTED AT IV SITE. IV AT LEFT HAND WITH NO REDNESS NOTED NO C/O PAIN. WATER AND CALL LIGHT IN REACH, NO NEEDS AT THIS TIME.
[2020-09-01 00:29] VITALS: BP 128/76
[2020-09-01 04:00] VITALS: BP 143/83
[2020-09-01 05:08] LABS: BASOPHILS 0 % (0-2); EOSINOPHILS 0.1 % (0-7); HEMATOCRIT 30.2 % (36.0-48.0); HEMOGLOBIN 9.5 g/dL (12-16); IMMATURE GRANULOCYTES 0.2 % (0-5); LYMPHOCYTES 14.8 % (15-50); MCH 28.6 pg (26.0-34.0); MCHC 31.5 g/dL (31.0-37.0); MEAN PLATELET VOLUME 9.4 fL (7.4-10.4); MONOCYTES 4.3 % (2-11); NEUTROPHILS 80.6 % (40-80); PLATELET COUNT 269 10x3/uL (130-400); RBC 3.32 10x6/uL (4.00-5.40)
[2020-09-01 05:17] LABS: WBC 12.2 10x3/uL (4.8-10.8)
[2020-09-01 05:23] LABS: ALBUMIN 2.5 g/dL (3.4-5.0); ALKALINE PHOSPHATASE 78 U/L (30-120); ALT (SGPT) 31 U/L (10-68); BILIRUBIN - TOTAL 0.19 mg/dL (0.2-1.3); CALC OSMOLALITY 283 mosm/kg (275-300); CALCIUM 8.1 mg/dL (8.5-10.1); CARBON DIOXIDE 26.1 mmol/L (21.0-32.0); CHLORIDE - SERUM 107 mmol/L (98-107); CREATININE - SERUM 0.7 mg/dL (0.6-1.3); GLUCOSE 96 mg/dL (74-106); POTASSIUM - SERUM 3.3 mmol/L (3.5-5.1); PROTEIN - SERUM 6.1 g/dL (6.4-8.2); SODIUM 143 mmol/L (136-145); UREA NITROGEN 10 mg/dL (7-18); eGFR NON AFRICAN AMERICAN > 90 mL/min (90-120)
[2020-09-01 07:15] LABS: ANA REFLEX - DIRECT Negative (Negative)
--- NOTE | 2020-09-01 07:19 | NUR ---
ALERT AND ORIENTED. LUNGS DIMINISHED TO BLL. HEART SOUNDS S1 AND S2 HEARD IN ALL CUETO. BOWEL SOUNDS ACTIVE X 4. IV TO NAZIA PATENT WITHOUT REDNESS. DENIES NEEDS. BED LOW. CALL WELCH AND PERSONAL ITEMS IN REACH. PT CONSULT PLACED TO PLACE WALKER BOOT ON PATIENT THIS AM PER DR VALENCIA ORDER. WILL CONTINUE TO MONITOR.
[2020-09-01 08:23] VITALS: BP 148/83
--- NOTE | 2020-09-01 10:00 | NUR ---
JARED BLAIR MADE AWARE PATIENT NEEDS CAM BOOT PLACED. STATES WILL PLACE AND ALREADY HAS IN NOTES TO DO.
--- NOTE | 2020-09-01 10:55 | NUR ---
INCENTIVE SPIROMETER GIVEN TO PATIENT AND EDUCATION PROVIDED. PATIENT ABLE TO PROVIDE TEACH BACK. INSTRUCTED TO USE TEN TIMES EACH HOUR. VERBALIZED UNDERSTANDING.
[2020-09-01 11:54] VITALS: BP 158/81
[2020-09-01 17:34] VITALS: BP 126/74
--- NOTE | 2020-09-01 18:01 | NUR ---
PATIENT STATES NEEDS MEDICATION TO HELP SLEEP. STATES TAKES AMLODIPINE 100MG NIGHTLY AT HOME TO SLEEP. MARIELLA VELASQUEZ PAGED ABOUT MEDICATION.
--- NOTE | 2020-09-01 19:58 | NUR ---
ALERT AND ORENTED ABLE TO VOICE NEEDS AND WANTSTO STAFF. SITTING ON SIDE OF BED WITH RIGHT FOOT ON BED. BOOT TO RIGHT FOOT. ON O2 AT 2 LEATERS VIA N/C. IV TO RIGHT UPPER ARM WITH NS PER ORDERS. WATER AND CALL LIGHT IN REACH NO S/S OF DISTRESS, STATED NO NEEDS AT THIS TIME.
[2020-09-01 21:26] VITALS: BP 158/87
[2020-09-02] VITALS: BP 162/92
[2020-09-02 04:00] VITALS: BP 150/84
[2020-09-02 04:49] LABS: BASOPHILS 0.1 % (0-2); EOSINOPHILS 1.3 % (0-7); HEMATOCRIT 31.4 % (36.0-48.0); HEMOGLOBIN 9.9 g/dL (12-16); IMMATURE GRANULOCYTES 0.4 % (0-5); LYMPHOCYTES 29.7 % (15-50); MCH 28.4 pg (26.0-34.0); MCHC 31.5 g/dL (31.0-37.0); MCV 90.2 fL (80.0-100.0); MEAN PLATELET VOLUME 9.1 fL (7.4-10.4); MONOCYTES 5.8 % (2-11); NEUTROPHILS 62.7 % (40-80); PLATELET COUNT 278 10x3/uL (130-400); RBC 3.48 10x6/uL (4.00-5.40)
[2020-09-02 04:54] LABS: WBC 9.1 10x3/uL (4.8-10.8)
[2020-09-02 05:43] LABS: ALBUMIN 2.7 g/dL (3.4-5.0); ALKALINE PHOSPHATASE 78 U/L (30-120); ALT (SGPT) 29 U/L (10-68); BILIRUBIN - TOTAL 0.35 mg/dL (0.2-1.3); CALC OSMOLALITY 279 mosm/kg (275-300); CALCIUM 8.2 mg/dL (8.5-10.1); CARBON DIOXIDE 25.6 mmol/L (21.0-32.0); CHLORIDE - SERUM 106 mmol/L (98-107); CREATININE - SERUM 0.7 mg/dL (0.6-1.3); GLUCOSE 83 mg/dL (74-106); POTASSIUM - SERUM 3.7 mmol/L (3.5-5.1); PROTEIN - SERUM 6.4 g/dL (6.4-8.2); SODIUM 142 mmol/L (136-145); eGFR NON AFRICAN AMERICAN > 90 mL/min (90-120)
[2020-09-02 05:44] LABS: UREA NITROGEN 7 mg/dL (7-18)
--- NOTE | 2020-09-02 07:45 | NUR ---
ALERT AND ORIENTED. LUNGS DIMINISHED BILATERALLY. HEART SOUNDS S1 AND S2 HEARD IN ALL CUETO. BOWEL SOUNDS ACTIVE X 4. IV TO NAZIA PATENT WITHOUT REDNESS. DENIES NEEDS. BED LOW. CALL WELCH AND PERSONAL ITEMS IN REACH. WILL CONTINUE TO MONITOR.
[2020-09-02 08:53] VITALS: BP 147/78
--- NOTE | 2020-09-02 09:52 | NUR ---
SITTING IN BED. DENIES NEEDS. WILL CONTINUE TO MONITOR.
[2020-09-02 12:01] VITALS: BP 132/78
--- NOTE | 2020-09-02 14:11 | NUR ---
RESTING IN BED. DENIES NEEDS. WILL CONTINUE TO MONITOR.
[2020-09-02 16:23] VITALS: BP 136/78
--- NOTE | 2020-09-02 19:41 | NUR ---
alert and orented able to voice needs and wants to staff. up sitting on side of bed using walker and walking boot to walk. watter and call light no s/s of distress no needs at this time.
[2020-09-02 20:00] VITALS: BP 146/85
[2020-09-03 04:00] VITALS: BP 145/85
[2020-09-03 04:35] LABS: BASOPHILS 0.1 % (0-2); EOSINOPHILS 3.2 % (0-7); HEMATOCRIT 34.8 % (36.0-48.0); IMMATURE GRANULOCYTES 0.6 % (0-5); LYMPHOCYTES 28.4 % (15-50); MCH 28.3 pg (26.0-34.0); MCHC 31.6 g/dL (31.0-37.0); MCV 89.5 fL (80.0-100.0); MEAN PLATELET VOLUME 8.8 fL (7.4-10.4); MONOCYTES 6.1 % (2-11); NEUTROPHILS 61.6 % (40-80); PLATELET COUNT 294 10x3/uL (130-400); RBC 3.89 10x6/uL (4.00-5.40); RDW 14.8 % (11.5-14.5); WBC 8.1 10x3/uL (4.8-10.8)
[2020-09-03 04:58] LABS: ALBUMIN 2.8 g/dL (3.4-5.0); ANION GAP 11.9 mmol/L (8-16); BILIRUBIN - TOTAL 0.35 mg/dL (0.2-1.3); CALCIUM 8.7 mg/dL (8.5-10.1); CARBON DIOXIDE 27.5 mmol/L (21.0-32.0); CREATININE - SERUM 0.9 mg/dL (0.6-1.3); POTASSIUM - SERUM 3.4 mmol/L (3.5-5.1); PROTEIN - SERUM 6.4 g/dL (6.4-8.2)
--- NOTE | 2020-09-03 07:00 | NUR ---
PT IS RESTING IN BED WITH EYES CLOSED. RESPIRATIONS ARE EVEN AND UNLABORED. PT IS EASILY AROUSED WITH VERBAL STIMULATION. UPON AROUSAL PT IS AAO X 4 AND ANSWERS ALL QUESTIONS APPROPRIATELY. PT DENIES PRESENCE OF NUMBNESS/TINGLING AT THIS TIME. PT REPORTS PAIN 8/10. WILL ADDRESS. SEE EMAR. PT WITH O2 SAT @ 99% ON ROOM AIR. PT DENIES PRESENCE OF DIZZINESS/DYSPNEA AT THIS TIME. RIGHT FOOT BOOT NOTED. PT REPORTS RIGHT FT FRACTURE. PIV TO RIGHT UPPER ARM IN PLACE AND INFUSING PER ORDER AND WITHOUT COMPROMISE. BED IS IN THE LOWEST POSITION. CALL LIGHT AND BEDSIDE TABLE ARE WITHIN REACH. SIDE RAILS X 2. INCENTIVE SPIROMETER WITHIN REACH AND ENCOURAGED. PT DENIES FURTHER NEEDS. WILL CONT TO MONITOR.
[2020-09-03 09:22] VITALS: BP 145/88
[2020-09-03] MEDS ORDERED: NICODERM CQ1 EAC3 TRANSDERM (09:49)
[2020-09-03] MEDS ORDERED: VENTOLIN HFA [SP8 GM INH (09:50)
[2020-09-03] MEDS ORDERED: TESSALON PERLE100 MG PO (09:50)
[2020-09-03] MEDS ORDERED: ZITHROMAX500 MG PO (09:50)
[2020-09-03] MEDS ORDERED: MUCINEX DM ER1 EAC1 PO (09:50)
[2020-09-03] MEDS ORDERED: OMNICEF300 MG PO (09:50)
[2020-09-03] MEDS ORDERED: FLORAJEN3 CAPS460 MG PO (09:50)
[2020-09-03] MEDS ORDERED: HYDROCODON-ACE1 EAC7 PO (11:14)
--- NOTE | 2020-09-03 12:06 | MORECARE ---
CASE MANAGEMENT DISCHARGE SUMMARY PATIENT: FLORENCE SALOMON SALINAS UNIT: [id number] ADM DATE: 08/30/20 AGE: 40 : 84 SEX: F ROOM/BED: D.2201 AUTHOR: DEON MCKINLEY PHYSICIAN: REFERRING PHYSICIAN: SALAZAR MONTERO MD DATE OF SERVICE: 09/03/20 Discharge Plan Patient Name: FLORENCE SALOMON [facility] [facility] 1980 Planned Disposition: Home Anticipated Discharge Date: Discharge Date: Expected LOS: Initial Reviewer: [email or web address] Initial Review Date: 08/30/2020 Generated: 09/03/20 1:05 pm DCPIA - Discharge Planning Initial Assessment Updated by [email or web address]: Michelle Carter on 09/03/20 12:02 pm * Is the patient Alert and Oriented? Yes * How many steps to enter\exit or inside your home? * [facility] * [facility] * Preadmission Environment Home with Family * ADLs Independent * Equipment Rolling Walker * List name and contact numbers for known caregivers / representatives who currently or will assist patient after discharge: SHAHAB SALOMON [phone] * Verbal permission to speak to the caregivers and representatives has been obtained from the patient. N/A * Community resources currently utilized None * Additional services required to return to the preadmission environment? No * Has this patient been hospitalized within the prior 30 days at any hospital? No Patient Name: FLORENCE SALOMON Page [phone] at 1206 All edits/amendments must be made on the electronic document DICTATION DATE: 09/03/20 1205 PLUMBING HARDWARE ASSEMBLER: NICOLE 09/03/20 1205 RPT#: [id number] DC DATE: STATUS: ADM IN [facility] [address] [place] [address] END OF REPORT
--- NOTE | 2020-09-03 12:13 | MORECARE ---
CASE MANAGEMENT DISCHARGE SUMMARY PATIENT: FLORENCE SALOMON UNIT: [id number] ADM DATE: 08/30/20 AGE: 40 : 84 SEX: F ROOM/BED: D.2201 AUTHOR: ELÍAS,DOC PHYSICIAN: REFERRING PHYSICIAN: SALAZAR MONTERO MD DATE OF SERVICE: 09/03/20 Discharge Plan Patient Name: FLORENCE SALOMON Facility: [facility]:[place] : 1980 Planned Disposition: Home Anticipated Discharge Date: Discharge Date: Expected LOS: Initial Reviewer: [email or web address] Initial Review Date: 08/30/2020 Generated: 09/03/20 1:13 pm Comments DCP- Discharge Planning Updated by [email or web address]: Michelle Carter on 09/03/20 11:[address] Patient Name: FLORENCE SALOMON Admission Status: ER Accout number: [id number] Admission Date: 08-30-2020 : 1980 Admission Diagnosis:PNEUMONIA, UNSPECIFIED ORGANISM Attending: SALAZAR MONTERO Current LOS: 4 Anticipated DC Date: Planned Disposition: Home Primary Insurance: MEDICAID [place] Discharge Planning Comments: CM met with patient to complete initial dc planning assessment. CM educated patient on the CM role and verbal consent given by patient to complete assessment. Patient lives at home with her 13 year old daughter, but has family who live all around her. At discharge patient plans to return home and feels this is a safe discharge. Her sister in law will be her special events driver home. CM discussed availability of home health, rehab services, and medical equipment. She has a walker at her bedside. Patient did express concern to me about going home, because she is not good with pain. Vicenta Caraballo APN, went and spoke with her and the patient feels better in going home per SOLUTION ANALYST. Patient denied known discharge needs at this time. CM will continue to follow and will assist as needed with dc plans/needs. Toolsmith: Michelle Carter DCPIA - Discharge Planning Initial Assessment Updated by [email or web address]: Michelle Carter on 09/03/20 12:02 pm * Is the patient Alert and Oriented? Yes * How many steps to enter\exit or inside your home? * [facility] * [facility] * Preadmission Environment Home with Family * ADLs Independent * Equipment Rolling Walker * List name and contact numbers for known caregivers / representatives who currently or will assist patient after discharge: SHAHAB SALOMON [phone] * Verbal permission to speak to the caregivers and representatives has been obtained from the patient. N/A * Community resources currently utilized None * Additional services required to return to the preadmission environment? No * Has this patient been hospitalized within the prior 30 days at any hospital? No Last DP export: 09/03/20 11:06 a Patient Name: FLORENCE SALOMON Page [phone] at 1213 All edits/amendments must be made on the electronic document DICTATION DATE: 09/03/201212 SCRATCH FINISHER: NICOLE 09/03/201212 RPT#: [id number] DC DATE: STATUS: ADM IN [facility] [address] [place] [address] END OF REPORT
--- NOTE | 2020-09-03 12:29 | MORECARE ---
CASE MANAGEMENT DISCHARGE SUMMARY PATIENT: FLORENCE SALOMON UNIT: [id number] ADM DATE: 08/30/20 AGE: 40 : 84 SEX: F ROOM/BED: D.2204 AUTHOR: DEON MCKINLEY PHYSICIAN: REFERRING PHYSICIAN: SALAZAR MONTERO MD DATE OF SERVICE: 09/03/20 Discharge Plan Patient Name: FLORENCE SALOMON Facility: [facility]:[place] : 1980 Planned Disposition: Home Anticipated Discharge Date: Discharge Date: Expected LOS: Initial Reviewer: [email or web address] Initial Review Date: 08/30/2020 Generated: 09/03/20 1:28 pm Comments DCP- Discharge Planning Updated by [email or web address]: Michelle Carter on 09/03/20 11:[address] KILGORE'S BIN FILLER ORDERED A NEBULIZER, I HAVE SENT THAT OVER TO [facility] ORDERED DCP- Discharge Planning Updated by [email or web address]: Michelle Carter on 09/03/20 11:[address] Patient Name: FLORENCE SALOMON Admission Status: ER Accout number: [id number] Admission Date: 08-30-2020 : 1980 Admission Diagnosis:PNEUMONIA, UNSPECIFIED ORGANISM Attending: SALAZAR MONTERO Current LOS: 4 Anticipated DC Date: Planned Disposition: Home Primary Insurance: MEDICAID [place] Discharge Planning Comments: CM met with patient to complete initial dc planning assessment. CM educated patient on the CM role and verbal consent given by patient to complete assessment. Patient lives at home with her 13 year old daughter, but has family who live all around her. At discharge patient plans to return home and feels this is a safe discharge. Her sister in law will be her commercial driver's license driver home. CM discussed availability of home health, rehab services, and medical equipment. She has a walker at her bedside. Patient did express concern to me about going home, because she is not good with pain. Vicenta Caraballo APN, went and spoke with her and the patient feels better in going home per BIN FILLER. Patient denied known discharge needs at this time. CM will continue to follow and will assist as needed with dc plans/needs. Case Picker: Michelle Carter DCPIA - Discharge Planning Initial Assessment Updated by [email or web address]: Michelle Carter on 09/03/20 12:02 pm * Is the patient Alert and Oriented? Yes * How many steps to enter\exit or inside your home? * [facility] * [facility] * Preadmission Environment Home with Family * ADLs Independent * Equipment Rolling Walker * List name and contact numbers for known caregivers / representatives who currently or will assist patient after discharge: SHAHAB SALOMON [phone] * Verbal permission to speak to the caregivers and representatives has been obtained from the patient. N/A * Community resources currently utilized None * Additional services required to return to the preadmission environment? No * Has this patient been hospitalized within the prior 30 days at any hospital? No External Providers External Provider: Tere Next Contact Date: Service Request Date: Service Type: Resolution: Reviewer: Comments: Last DP export: 09/03/20 11:14 a Patient Name: FLORENCE SALOMON Page [phone] at 1229 All edits/amendments must be made on the electronic document DICTATION DATE: 09/03/20 1229 COMMERCIAL PEST CONTROL REPRESENTATIVE: NICOLE 09/03/20 1229 RPT#: [id number] DC DATE: STATUS: ADM IN [facility] [address] [place] [address] END OF REPORT
--- NOTE | 2020-09-03 13:22 | NUR ---
ALL DISCHARGE INSTRUCTIONS COVERED WITH PT. (1) PRINTED RX GIVEN TO PT. PT DENIES FURTHER QUESTIONS/CONCERNS/NEEDS AT THIS TIME. ALL DISCHARGE PAPERS SIGNED BY PATIENT. PT IS WAITING FOR SISTER IN LAW TO GET OFF OF WORK FOR TRANSPORTATION HOME. PT WILL NOTIFY NURSE WHEN READY. PIV TO RIGHT UPPER ARM REMOVED WITH CATHETER TIP INTACT. DRESSING APPLIED. BED IS IN THE LOWEST POSITION. CALL LIGHT AND BEDSIDE TABLE ARE WITHIN REACH. SIDE RAILS X 2. PT DENIES FURTHER NEEDS. WILL CONT TO MONITOR.
--- NOTE | 2020-09-03 13:57 | NUR ---
PT TRANSPORTED FROM ROOM VIA WHEELCHAIR FOR TRANSPORTATION HOME. PT STATES THAT SHE HAS ALL PERSONAL ITEMS ARE WITH HER. PT THANKS THIS NURSE FOR CARE GIVEN DURING THIS SHIFT. PT DENIES ANY FURTHER QUESTIONS/CONCERNS/NEEDS AT THIS TIME.
--- NOTE | 2020-09-03 14:15 | MORECARE ---
CASE MANAGEMENT DISCHARGE SUMMARY PATIENT: FLORENCE SALOMON UNIT: [id number] ADM DATE: 08/30/20 AGE: 40 : 84 SEX: F ROOM/BED: D.2201 AUTHOR: ELÍAS,DOC PHYSICIAN: REFERRING PHYSICIAN: SALAZAR MONTERO MD DATE OF SERVICE: 09/03/20 Discharge Plan Patient Name: FLORENCE SALOMON Facility: [facility]:[place] : 1980 Planned Disposition: Home Anticipated Discharge Date: Discharge Date: 09/03/2020 Expected LOS: Initial Reviewer: [email or web address] Initial Review Date: 08/30/2020 Generated: 09/03/20 3:14 pm Comments DCP- Discharge Planning Updated by [email or web address]: Michelle Carter on 09/03/20 1:[address] SPOKE WITH SEBASTIAN AT [facility], THEY WILL DELIVER HER NEBULIZER TO HER HOME DCP- Discharge Planning Updated by [email or web address]: Michelle Carter on 09/03/20 11:[address] KILGORE'S APPAREL SALES LEADER ORDERED A NEBULIZER, I HAVE SENT THAT OVER TO [facility] ORDERED DCP- Discharge Planning Updated by [email or web address]: Michelle Carter on 09/03/20 11:[address] Patient Name: FLORENCE SALOMON Admission Status: ER Accout number: [id number] Admission Date: 08-30-2020 : 1980 Admission Diagnosis:PNEUMONIA, UNSPECIFIED ORGANISM Attending: SALAZAR MONTERO Current LOS: 4 Anticipated DC Date: Planned Disposition: Home Primary Insurance: MEDICAID [place] Discharge Planning Comments: CM met with patient to complete initial dc planning assessment. CM educated patient on the CM role and verbal consent given by patient to complete assessment. Patient lives at home with her 13 year old daughter, but has family who live all around her. At discharge patient plans to return home and feels this is a safe discharge. Her sister in law will be her regional company hazmat tanker driver home. CM discussed availability of home health, rehab services, and medical equipment. She has a walker at her bedside. Patient did express concern to me about going home, because she is not good with pain. Vicenta Caraballo APN, went and spoke with her and the patient feels better in going home per APPAREL SALES LEADER. Patient denied known discharge needs at this time. CM will continue to follow and will assist as needed with dc plans/needs. Flight Hostess: Michelle Carter DCPIA - Discharge Planning Initial Assessment Updated by [email or web address]: Michelle Carter on 09/03/20 12:02 pm * Is the patient Alert and Oriented? Yes * How many steps to enter\exit or inside your home? * [facility]CP [facility] * [facility] * Preadmission Environment Home with Family * ADLs Independent * Equipment Rolling Walker * List name and contact numbers for known caregivers / representatives who currently or will assist patient after discharge: SHAHAB AIME [phone] * Verbal permission to speak to the caregivers and representatives has been obtained from the patient. N/A * Community resources currently utilized None * Additional services required to return to the preadmission environment? No * Has this patient been hospitalized within the prior 30 days at any hospital? No Last DP export: 09/03/20 11:29 a Patient Name: FLORENCE SALOMON Page [phone] at 1415 All edits/amendments must be made on the electronic document DICTATION DATE: 09/03/201413 AUDIO VISUAL ENGINEER: NICOLE 09/03/201413 RPT#: [id number] DC DATE:09/03/20 STATUS: DIS IN [facility] [address] [place] [address] END OF REPORT
--- NOTE | 2020-09-04 08:55 | EC ---
PATIENT:FLORENCE SALOMON DATE OF SERVICE: 08/30/20 SEX: F MEDICAL RECORD: [id number] DATE OF : [birth year] LOCATION:[facility] AGE OF PATIENT: 40 ADMISSION DATE: 08/30/20 REFERRING PHYSICIAN: INTERPRETING PHYSICIAN: REKHA ROTH MD ECHOCARDIOGRAM REPORT ECHO CHARGES 4 ECHO COMPLETE Date: 08/31/20 CLINICAL DIAGNOSIS: SOB ECHOCARDIOGRAPHIC MEASUREMENTS (adult normal given) AC root (d.<3.7cm) 3.0 cm LV Septum d (<1.2 cm> 0.6 cm Valve Excursion 1.9 cm LV Septum (systole) 1.0 cm Left Atria (s.<4.0cm> 3.5 cm LVPW d(<1.2cm) 1.0 cm RV (d.<2.3cm) 2.8 cm LVPW (sytole) 1.1 cm LV diastole(<5.6CM) 5.9 cm MV E-F(>70mm/sec) cm LV systole 4.9 cm LVOT Diameter 1.8 cm MV exc.(>10mm) 1.6 cm Est.ejection fraction (50-75%) % DOPPLER: LVIT cm/sec A 106 cm/sec E 99 cm/sec LA cm/sec RVSP 20 mmHg LVOT 114 cm/sec AOP1/2T m/s Asc. Ao 130 cm/sec RVOT 69 cm/sec RA cm/sec PA 88 cm/sec AV Gradient Peak 6.8 mmHg AV Mean 3.4 mmHg AV Area 2.0 cm MV Gradient Peak 7.6 mmHg MV Mean 4.4 mmHg MV Area cm COMMENTS: Geriatric Care Manager: George NEGRETE Proof Machine Operator Supervisor: 3 Dr. Schultz TAPE# PACS Pericardial Effusion N DATE OF SERVICE: Adequate 2D, color flow imaging, spectral Doppler, and M-mode. No LVH. LV internal dimensions are normal. Wall motion is normal. EF is greater than or equal to 55%. Aortic valve is sclerotic without evidence of stenosis by Doppler interrogation. Left atrium is normal at 3.5 cm. Mitral valve shows no prolapse. Trace MR. Right-sided chambers are grossly normal. Mild TR. TRANSINT:[id number] Voice Confirmation ID: [id number] DOCUMENT ID: [id number] ECHOCARDIOGRAM REPORT [id number] FLORENCE SALOMON REKHA ROTH MD at 0855 CC: [id number] DICTATION DATE: 09/01/20 1521 SECTION HOUSEKEEPER: 09/02/20 0010 DIS IN 09/03/20 [place] [id number] [place] [address]
--- NOTE | 2020-09-06 04:25 | NUR ---
LATE ENTRY: ROCEPHIN STARTED 08/31/20 @ 0600 FINISHED 08/31/20 0630. 1GM/50ML INFUSED.
--- NOTE | 2020-09-07 08:53 | NUR ---
08/30/20 ZITHROMAX INFUSION COMPLETED AT 1120AM
--- NOTE | 2020-09-07 08:58 | MORECARE ---
CASE MANAGEMENT DISCHARGE SUMMARY PATIENT: FLORENCE SALOMON UNIT: [id number] ADM DATE: 08/30/20 AGE: 40 : 84 SEX: F ROOM/BED: D.2201 AUTHOR: ELÍAS,DOC PHYSICIAN: REFERRING PHYSICIAN: SALAZAR MONTERO MD DATE OF SERVICE: 09/07/20 Discharge Plan Patient Name: FLORENCE SALOMON Facility: [facility]:[place] : 1980 Planned Disposition: Home Anticipated Discharge Date: Discharge Date: 09/03/2020 Expected LOS: Initial Reviewer: [id number] Initial Review Date: 08/30/2020 Generated: 09/07/20 9:58 am Comments DCP- Discharge Planning Updated by [email or web address]: Michelle Carter on 09/03/20 1:[address] SPOKE WITH SEBASTIAN AT [facility], THEY WILL DELIVER HER NEBULIZER TO HER HOME DCP- Discharge Planning Updated by [email or web address]: Michelle Carter on 09/03/20 11:[address] KILGORE'S ATMOSPHERIC TECHNICIAN ORDERED A NEBULIZER, I HAVE SENT THAT OVER TO [facility] ORDERED DCP- Discharge Planning Updated by [email or web address]: Michelle Carter on 09/03/20 11:[address] Patient Name: FLORENCE SALOMON Admission Status: ER Accout number: [id number] Admission Date: 08-30-2020 : 1980 Admission Diagnosis:PNEUMONIA, UNSPECIFIED ORGANISM Attending: SALAZAR MONTERO Current LOS: 4 Anticipated DC Date: Planned Disposition: Home Primary Insurance: MEDICAID [place] Discharge Planning Comments: CM met with patient to complete initial dc planning assessment. CM educated patient on the CM role and verbal consent given by patient to complete assessment. Patient lives at home with her 13 year old daughter, but has family who live all around her. At discharge patient plans to return home and feels this is a safe discharge. Her sister in law will be her van driver helper home. CM discussed availability of home health, rehab services, and medical equipment. She has a walker at her bedside. Patient did express concern to me about going home, because she is not good with pain. Vicenta Caraballo APN, went and spoke with her and the patient feels better in going home per ATMOSPHERIC TECHNICIAN. Patient denied known discharge needs at this time. CM will continue to follow and will assist as needed with dc plans/needs. Dry Box Operator: Michelle Carter DCPIA - Discharge Planning Initial Assessment Updated by [email or web address]: Michelle Carter on 09/03/20 12:02 pm * Is the patient Alert and Oriented? Yes * How many steps to enter\exit or inside your home? * PCP [facility] * [facility]acy [facility] * Preadmission Environment Home with Family * ADLs Independent * Equipment Rolling Walker * List name and contact numbers for known caregivers / representatives who currently or will assist patient after discharge: SHAHAB SALOMON [phone] * Verbal permission to speak to the caregivers and representatives has been obtained from the patient. N/A * Community resources currently utilized None * Additional services required to return to the preadmission environment? No * Has this patient been hospitalized within the prior 30 days at any hospital? No Last DP export: 09/03/20 1:15 p Patient Name: FLORENCE SALOMON Page [id number] at 0858 All edits/amendments must be made on the electronic document DICTATION DATE: 09/07/20857 OSTEOPATHIC NEUROLOGIST: NICOLE 09/07/20857 RPT#: [id number] DC DATE:09/03/20 STATUS: DIS IN [facility] [address] [place] [address] END OF REPORT
== END 2020-09-03 13:59 | disposition home or self-care (01) | DRG 194 ==
LOC: D.ER 03:30 → D.EDHOLD 05:52 → D.MS 05:52 → D.M2 19:12 → D.EDHOLD 21:44 → D.MS 08-31 12:22
PROVIDERS: Emergency Medicine; Family Medicine Adult Medicine; Internal Medicine Pulmonary Disease; ADMIT Family Medicine; ATTEND Family Medicine
DX: J18.9 Pneumonia, unspecified organism (principal); F17.203 Nicotine dependence unspecified, with withdrawal; E87.1 Hypo-osmolality and hyponatremia; R06.00 Dyspnea, unspecified; D64.9 Anemia, unspecified; F31.9 Bipolar disorder, unspecified; G62.9 Polyneuropathy, unspecified; J44.9 Chronic obstructive pulmonary disease, unspecified; S92.321A Displaced fracture of second metatarsal bone, right foot, initial encounter for closed fracture; S92.341A Displaced fracture of fourth metatarsal bone, right foot, initial encounter for closed fracture; W19.XXXA Unspecified fall, initial encounter